=== PATIENT | male | born 1985 | race Caucasian/White ===

== ENCOUNTER 2017-11-28 02:50 | Emergency (ER) | payer MEDICAID ==
[~2017-11-28] VITALS: Ht 170.2 cm; Wt 71.8 kg
[~2017-11-28 02:50] MED LIST: CEPH500C5 PO; NO HOME MEDS
[2017-11-28 03:12] VITALS: BP 143/104
== END 2017-11-28 03:13 | disposition home or self-care (01) ==
LOC: ER 02:51
DX: Z02.89 Encounter for other administrative examinations (principal); F15.10 Other stimulant abuse, uncomplicated; F12.10 Cannabis abuse, uncomplicated; F19.10 Other psychoactive substance abuse, uncomplicated; Z60.2 Problems related to living alone; Z56.0 Unemployment, unspecified; Z91.010 Allergy to peanuts
CPT/HCPCS: 99281

== ENCOUNTER 2018-04-09 12:00 | Emergency (ER) | payer MEDICAID ==
[~2018-04-09] VITALS: Ht 170.2 cm; Wt 73.0 kg
[2018-04-09 12:26] VITALS: BP 133/78
[2018-04-09] MEDS ORDERED: IBUP-1985 PO (12:50)
== END 2018-04-09 13:04 | disposition home or self-care (01) ==
LOC: ER 12:00
DX: M25.511 Pain in right shoulder (principal); F12.10 Cannabis abuse, uncomplicated; F15.10 Other stimulant abuse, uncomplicated; Z60.2 Problems related to living alone; Z56.0 Unemployment, unspecified; Z91.010 Allergy to peanuts; Z79.899 Other long term (current) drug therapy
CPT/HCPCS: 99282; A4565

== ENCOUNTER 2020-12-18 01:47 | Emergency (ER) | payer MEDICAID ==
[~2020-12-18] VITALS: Ht 170.2 cm; Wt 77.3 kg
[~2020-12-18 01:47] MED LIST changes: -CEPH500C5 PO; +IBUP-1985 PO
[2020-12-18 01:51] VITALS: BP 156/94
== END 2020-12-18 02:15 | disposition home or self-care (01) ==
LOC: ER 01:47
DX: M25.512 Pain in left shoulder (principal); F12.90 Cannabis use, unspecified, uncomplicated; F17.200 Nicotine dependence, unspecified, uncomplicated; F15.90 Other stimulant use, unspecified, uncomplicated; Z72.89 Other problems related to lifestyle; Z56.0 Unemployment, unspecified; Z60.9 Problem related to social environment, unspecified; Z91.010 Allergy to peanuts; Z79.899 Other long term (current) drug therapy
CPT/HCPCS: 99281

== ENCOUNTER 2021-11-03 17:02 | Emergency (ER) | payer MEDICAID ==
[~2021-11-03] VITALS: Ht 170.2 cm; Wt 77.3 kg
[2021-11-03 17:11] VITALS: BP 139/98
[2021-11-03] MEDS ORDERED: ondansetron 4mg rapidly disintigrating tab PO ONE (17:15)
[2021-11-03] MEDS ORDERED: acetaminophen 325mg tablet PO ONE (17:15)
[2021-11-03] MEDS ORDERED: ibuprofen tablet 400 MG TABLET PO ONE (18:25)
[2021-11-03 18:37] LABS: BASOPHILS % (AUTO) 0.2 % (0-1); EOSINOPHILS % (AUTO) 0 % (0-6); HEMATOCRIT 39.1 % (42.0-52.0); HEMOGLOBIN 13.7 g/dl (14.0-17.9); LYMPHOCYTES # (AUTO) 0.8 X10'3 (1.1-4.8); LYMPHOCYTES % (AUTO) 4.9 % (21-51); MEAN CORPUSCULAR HEMOGLOBIN 31.6 PG (27.0-31.0); MEAN CORPUSCULAR HGB CONC 35.1 g/dL (33.0-36.5); MEAN CORPUSCULAR VOLUME 89.9 FL (78-98); MEAN PLATELET VOLUME 7.1 FL (7.4-10.4); MONOCYTES # (AUTO) 1.5 X10'3 (0-0.9); MONOCYTES % (AUTO) 9.6 % (2-12); NEUTROPHILS # (AUTO) 13.5 X10'3 (1.8-7.7); NEUTROPHILS % (AUTO) 85.3 % (42-75); PLATELET COUNT 255 X10'3 (140-440); RED BLOOD COUNT 4.35 X10'6 (4.70-6.10); RED CELL DISTRIBUTION WIDTH 13.2 % (11.5-14.5); WHITE BLOOD COUNT 15.8 X10'3 (4.5-11.0)
[2021-11-03 18:54] LABS: ALBUMIN 3.8 G/DL (3.4-5.0); BLOOD UREA NITROGEN 13 MG/DL (7-18); BUN/CREATININE RATIO 15.1 (5.4-32.0); CREATININE 0.86 MG/DL (0.60-1.10); GLUCOSE 120 MG/DL (70-104); TOTAL CARBON DIOXIDE 27.5 MMOL/L (24-32); eGFR > 90 ML/MIN
[2021-11-03 19:00] LABS: ANION GAP 7 (8-16); CHLORIDE 99 MMOL/L (99-107); POTASSIUM 3.9 MMOL/L (3.5-5.1); SODIUM 133 MMOL/L (135-145)
== END 2021-11-03 20:13 | disposition home or self-care (01) ==
LOC: ER 17:03
DX: B34.9 Viral infection, unspecified (principal); Z20.822 Contact with and (suspected) exposure to COVID-19; F12.10 Cannabis abuse, uncomplicated; F15.10 Other stimulant abuse, uncomplicated; Z56.0 Unemployment, unspecified; Z91.010 Allergy to peanuts
CPT/HCPCS: 36415; 70450; 71045; 80048; 83605; 84145; 85025; 87040; 87635; 99285; C9803